=== PATIENT | male | born 1945 | race Caucasian/White ===

== ENCOUNTER 2017-09-16 11:00 | Outpatient (CLI) | payer OTHER ==
[2017-09-16] MEDS ORDERED: TOPAMAX200 MG PO (15:39)
[2017-09-16] MEDS ORDERED: PAMELOR50 M1 PO (15:39)
[2017-09-16] MEDS ORDERED: TOPROL XL25 MG PO (15:40)
[2017-09-16] MEDS ORDERED: LIPITOR40 MG PO (15:40)
[2017-09-16] MEDS ORDERED: B-121000 MC1 PO (15:40)
[2017-09-16] MEDS ORDERED: [UNRECOGNIZED DRUG - OTHER] PO (15:41)
[2017-09-16] MEDS ORDERED: TRAMADOL HCL50 MG PO (15:41)
== END 2017-09-16 12:00 | disposition home or self-care (01) ==
LOC: EKG 11:00
DX: I10 Essential (primary) hypertension (principal)

== ENCOUNTER → 2017-09-16 | Outpatient (CLI) | payer OTHER ==
[~2017-09-16] MED LIST: B-121000 MC1 PO; LIPITOR40 MG PO; PAMELOR50 M1 PO; TOPAMAX200 MG PO; TOPROL XL25 MG PO; TRAMADOL HCL50 MG PO; [UNRECOGNIZED DRUG - OTHER] PO
== END | disposition home or self-care (01) ==
LOC: RAD 11:01
DX: S66.50 Unspecified injury of intrinsic muscle, fascia and tendon of other and unspecified finger at wrist and hand level (principal); Z01.810 Encounter for preprocedural cardiovascular examination

== ENCOUNTER → 2017-09-22 | Day surgery (SDC) | payer OTHER | END | disposition home or self-care (01) | LOC: LAB 09-16 10:57 → EDSTATUS 09-16 14:49 → CIR.AMB 09-16 14:49 | DX: M20.092 Other deformity of left finger(s) (principal) ==